=== PATIENT | male | born 1940 | race African-American/Black ===

== ENCOUNTER → 2018-09-30 | Day surgery (SDC) | payer MEDICARE ==
[2018-09-23 12:55] LABS: BASOPHILS % 0.3 % (0.0-1.0); EOSINOPHILS # (AUTO) 0.1 (0.0-0.4); HEMATOCRIT 41.8 % (38.2-49.6); HEMOGLOBIN 13.2 g/dL (14.0-18.0); LYMPHOCYTES # (AUTO) 1.2 (1.0-3.2); LYMPHOCYTES % 32.7 % (18.0-39.1); MEAN CORPUSCULAR HEMOGLOBIN 30.4 pg (28-32); MEAN CORPUSCULAR HGB CONC 31.6 g/dL (31-35); MEAN CORPUSCULAR VOLUME 96.3 fL (81-99); MONOCYTES # (AUTO) 0.5 (0.2-0.8); MONOCYTES % 14.3 % (4.4-11.3); NEUTROPHILS # (AUTO) 1.8 (2.1-6.9); NEUTROPHILS % 49.4 % (38.7-80.0); PLATELET COUNT 220 x10e3/uL (140-360); RED BLOOD COUNT 4.34 x10e6/uL (4.3-5.7); RED CELL DISTRIBUTION WIDTH 13.9 % (11.7-14.4)
[~2018-09-30] MED LIST: ATORVASTATIN CA20 MG PO; FENTANYL CITRATE/PF 100MCG/2 ML INJ ONE; HYDROCODON-ACE1 EA11 PO; HYOSCYAMINE SULFATE 0.5 MG/ML INJ ONE; MIDAZOLAM HCL 2 MG/2 ML VIAL ONE; PROPOFOL IV EMULSION 10 MG/ML 20 ML VIAL ONE; PROPOFOL IV EMULSION 10 MG/ML 50 ML VIAL ONE; ULTRAM50 MG PO
--- OUTSIDE RECORDS SUMMARY | 2018-09-30 08:10 | XMS REPORT ---
Author Author Giacomo Balderas [facility] eClinicalWorks Address Unknown Phone Unavailable Care Team Providers Care Freight Car Inspector Name Role Phone Giacomo Balderas Unavailable Allergies, Adverse Reactions, Alerts Substance Reaction Event Type N.K.D.A. Info Not Available Non Drug Allergy Encounters Encounter Location Date [facility] Migel Kim MD February 09, 2014 Problems Problem Type Condition ICD-9 Code Onset Dates Condition Status Assessment Gout, unspecified 274.9 Active Assessment Lumbar Radiculopathy 724.4 Active Problem Rheumatoid arthritis 714.0 Active Problem Lumbar Radiculopathy 724.4 Active Problem Gout, unspecified 274.9 Active Assessment Rheumatoid arthritis 714.0 Active Assessment Polyarthritis, multiple sites 716.59 Active Problem Long-term (current) use of other medications - High Risk V58.69 Active Problem Polyarthritis, multiple sites 716.59 Active Medications Medication Code System Code Instructions Start Date End Date Status Dosage Plaquenil MEDISPAN [address]-71 200 MG Orally Twice a day February 09, 2014 May 10, 2014 Active 1 tablet with food or milk Losartan Potassium MEDISPAN [address]-47 25 MG Orally Once a day Active 1 tablet Gabapentin MEDISPAN [address]-84 100 MG Orally Three times a day February 09, 2014 Active as directed Vimovo MEDISPAN [address]-48 500-20 MG Orally Twice a day Active 1 tablet before meals Atorvastatin Calcium MEDISPAN [address]-55 40 MG Orally Once a day Active 1 tablet Social History Social History Element Qualifiers Date Reported Tobacco Use: . Are you a:: former smoker February 09, 2014 Caffeine: no. February 09, 2014 Exercise: yes. Walking February 09, 2014 Alcohol: socially. beer February 09, 2014 Vital Signs Date/Time: February 09, 2014 Weight 189 lbs Height 74 in Temperature 97.3 F Cardiac Monitoring Heart Rate 72 /min Blood Pressure Diastolic 82 mm Hg Blood Pressure Systolic 142 mm Hg Immunizations Vaccine Administration Date Depomedrol February 09, 2014 Summary Purpose eClinicalWorks Submission
--- OUTSIDE RECORDS SUMMARY | 2018-09-30 08:10 | XMS REPORT | Continuity of Care Document ---
Author Author [facility] Interface Address Unknown Phone Unavailable Problems Problem Status Onset Date Classification Date Reported Comments Source Rheumatoid arthritis Active Problem 01/17/2016 Zay Meredither Lumbar Radiculopathy Active Problem 01/17/2016 Zay Kim Gout, unspecified Active Problem 01/17/2016 Zay Kim Long-term use of other medications - High Risk Active Problem 01/17/2016 Zay Kim Polyarthritis, multiple sites Active Problem 01/17/2016 Zay Kim Pain in joint, shoulder region Active Diagnosis 06/02/2014 Zay Meredither Pain in joint, wrist Active Diagnosis 04/07/2014 Zay Kim Osteoarthrosis generalized, unspecified site Active Problem 01/17/2016 Zay Meredither Unspecified drug dependence Active Diagnosis 04/07/2015 Zay Kim HTN, Unspecified Active Problem 02/22/2017 Enayet Rahim Hyperlipidemia, unspecified Active Problem 02/22/2017 Enayet Rahim Essential hypertension Active Problem 02/22/2017 Enayet Rahim Acute pain of right knee Active Diagnosis 02/22/2017 Enayet Rahim Rheumatoid arthritis involving multiple sites with positive rheumatoid factor Active Diagnosis 01/16/2017 Enayet Rahim Encounter to establish care Active Diagnosis 01/16/2017 Enayet Rahim Pure hypercholesterolemia Active Diagnosis 01/16/2017 Enayet Rahim Medications Medication Details Route Status Patient Instructions Ordering Provider Order Date Source Meloxicam 1 tablet Orally Active 15 MG Orally Once a day [facility] 02/20/2017 Enayet Rahim Medrol as directed Orally Active 4 MG Orally as directed [facility] 01/14/2017 Enayet Rahim Tramadol HCl 1 tablet as needed Orally Active 50 MG Orally bid [place] 11/01/2014 Zay Kim Vimovo 1 tablet before meals Orally Active 375-20 MG Orally Twice a day [place] 10/24/2014 Zay Kim Hydrocodone-Acetaminophen 1 tablet as needed Orally Active 5- 325 MG Orally every 6 hrs [place] 06/04/2014 Zay Kim Plaquenil 1 tablet with food or milk Orally Active 200 MG Orally Twice a day [place] 02/09/2014 Zay Kim Gabapentin as directed Orally Active 100 MG Orally Three times a day [place] 02/09/2014 Zay Kim Losartan Potassium 1 tablet Orally Active 25 MG Orally Once a day [place] Zay Kim Vimovo 1 tablet before meals Orally Active 500-20 MG Orally Twice a day [place] Zay Kim Atorvastatin Calcium 1 tablet Orally Active 40 MG Orally Once a day [facility] Zay Kim Gabapentin as directed Orally Active 100 MG Orally Three times a day [place] Zay Kim Tramadol HCl TAKE 1 TABLET BY MOUTH TWICE DAILY NEEDED NA Active 50 [place] Zay Kim Gabapentin TAKE ONE CAPSULE BY MOUTH THREE TIMES A DAY DIRECTED NA Active 100 [place] Zay Kim Atorvastatin Calcium 1 tablet Orally Active 20 MG Orally Once a day [facility] Saad Leon Tramadol HCl 1 tablet as needed Orally Active 50 MG Orally twice a day [facility] Saad [place] Losartan Potassium 1 tablet Orally Active 50 MG Orally Once a day [facility] Saad Hardy Celecoxib 1 capsule with food Orally Active 100 MG Orally Twice a day [facility] Leflunomide 1 tablet Orally Active 10 MG Orally Once a day [facility] Saad Hardy Allergies, Adverse Reactions, Alerts Substance Category Reaction Severity Reaction type Status Date Reported Comments Source Hydroxychloroquine Adverse Reaction blurry vision Adverse Reaction Active 03/21/2015 Zay Pandey Adverse Reaction Info Not Available Adverse Reaction Active 02/20/2017 Enlauraet him Immunizations Immunization Date Given Site Status Last Updated Comments Source Depomedrol 02/09/2014 completed Zay Kim Results Order Name Results Value Reference Range Date Interpretation Comments Source Vital Signs Vital Sign Value Date Comments Source Weight 187 02/20/2017 Enayet Rahim Height 74 02/20/2017 Enayet Rahim Temperature Oral (F) 97.3 F 02/20/2017 Enayet Rahim Diastolic (mm Hg) 105 02/20/2017 Enayet Rahim Systolic (mm Hg) 173 02/20/2017 Enayet Rahim Weight 188 01/14/2017 Enayet Rahim Height 74 01/14/2017 Enayet Rahim Temperature Oral (F) 97.2 F 01/14/2017 Enayet Rahim Diastolic (mm Hg) 100 01/14/2017 Enayet Rahim Systolic (mm Hg) 162 01/14/2017 Enayet Rahim Weight 187 03/21/2015 Zay Kim Height 74 03/21/2015 Zay Kim Temperature Oral (F) 97.4 F 03/21/2015 Zay Kim Heart Rate 78 03/21/2015 Zay Kim Diastolic (mm Hg) 90 03/21/2015 Zay Kim Systolic (mm Hg) 140 03/21/2015 Zay Kim Weight 181 11/01/2014 Zay Kim Height 74 11/01/2014 Zay Kim Temperature Oral (F) 97.8 F 11/01/2014 Zay Kim Heart Rate 80 11/01/2014 Zay Kim Diastolic (mm Hg) 82 11/01/2014 Zay Kim Systolic (mm Hg) 124 11/01/2014 Zay Kim Weight 189 02/09/2014 Zay Kim Height 74 02/09/2014 Zay Kim Temperature Oral (F) 97.3 F 02/09/2014 Zay Kim Heart Rate 72 02/09/2014 Zay Kim Diastolic (mm Hg) 82 02/09/2014 Zay Kim Systolic (mm Hg) 142 02/09/2014 Zay Kim Encounters Location Location Details Encounter Type Encounter Number Reason For Visit Attending Provider ADM Date DC Date Status Source Migel Kim MD [facility] [id number] 02/09/2014 02/09/2014 Zay Kim MD [facility] [id number] 02/09/2014 02/09/2014 Zay Kim MD [facility] [id number] 02/09/2014 02/09/2014 Zay Kim MD [facility] [id number] 02/09/2014 02/09/2014 Zay Kim MD [facility] [id number] 02/09/2014 02/09/2014 Zay Kim MD [facility] [id number] 02/09/2014 02/09/2014 Zay Kim MD [facility] [id number] 02/09/2014 02/09/2014 Zay Kim MD [facility] [id number] 02/09/2014 02/09/2014 Zay Kim MD [facility] [id number] 02/09/2014 02/09/2014 Zay Kim MD [facility] [id number] 02/09/2014 02/09/2014 Zay Kim MD [facility] [id number] 02/09/2014 02/09/2014 Zay Kim MD [facility] [id number] 02/09/2014 02/09/2014 Zay Kim MD [facility] [id number] 02/09/2014 02/09/2014 Zay Kim MD [facility] [id number] 02/09/2014 02/09/2014 Zay Kim MD [facility] [id number] 02/09/2014 02/09/2014 Zay Kim MD [facility] [id number] 02/09/2014 02/09/2014 Zay Kim MD MRI [id number] 03/15/2014 03/15/2014 Zay Kim MD MRI [id number] 03/15/2014 03/15/2014 Zay Kim MD MRI [id number] 03/15/2014 03/15/2014 Zay Kim MD MRI [id number] 03/15/2014 03/15/2014 Zay Kim MD MRI [id number] 03/15/2014 03/15/2014 Zay Kim MD MRI [id number] 03/15/2014 03/15/2014 Zay Kim MD MRI [id number] 03/15/2014 03/15/2014 Zay Kim MD MRI [id number] 03/15/2014 03/15/2014 Zay Kim MD MRI [id number] 03/15/2014 03/15/2014 Zay Kim MD MRI [id number] 03/15/2014 03/15/2014 Zay Kim MD [facility] [id number] 03/15/2014 03/15/2014 Zay Kim MD [facility] [id number] 03/15/2014 03/15/2014 Zay Kim MD MRI [id number] 03/15/2014 03/15/2014 Zay Kim MD MRI [id number] 03/15/2014 03/15/2014 Zay Kim MD [facility] [id number] 03/15/2014 03/15/2014 Zay Kim MD 6wk f/u [id number] 04/19/2014 04/19/2014 Zay Kim MD 6wk f/u [id number] 04/19/2014 04/19/2014 Zay Kim MD 6wk f/u [id number] 04/19/2014 04/19/2014 Zay iKm MD 6wk f/u [id number] 04/19/2014 04/19/2014 Zay Kim MD 6wk f/u [id number] 04/19/2014 04/19/2014 Zay Kim MD 6wk f/u [id number] 04/19/2014 04/19/2014 Zay Kim MD 6wk f/u [id number] 04/19/2014 04/19/2014 Zay Kim MD MRI Order [id number] 04/22/2014 04/22/2014 Zay Kim MD MRI Order [id number] 04/22/2014 04/22/2014 Zay Kim MD MRI Order [id number] 04/22/2014 04/22/2014 Zay Kim MD MRI Order [id number] 04/22/2014 04/22/2014 Zay Kim MD MRI Order [id number] 04/22/2014 04/22/2014 Zay Kim MD MRI Order [id number] 04/22/2014 04/22/2014 Zay Kim MD MRI Order [id number] 04/22/2014 04/22/2014 Zay Kim MD MRI Order [id number] 04/22/2014 04/22/2014 Zay Kim MD MRI Order [id number] 04/22/2014 04/22/2014 Zay Kim MD MRI Order [id number] 04/22/2014 04/22/2014 Zay Kim MD MRI Order [id number] 04/22/2014 04/22/2014 Zay Kim MD MRI Order [id number] 04/22/2014 04/22/2014 Zay Kim MD MRI Order [id number] 04/22/2014 04/22/2014 Zay Kim MD MRI Order [id number] 04/22/2014 04/22/2014 Zay Kim MD lab order [id number] 04/22/2014 04/22/2014 Zay Kim MD lab order [id number] 04/22/2014 04/22/2014 Zay Kim MD lab order [id number] 04/22/2014 04/22/2014 Zay Kim MD lab order [id number] 04/22/2014 04/22/2014 Zay Kim MD lab order [id number] 04/22/2014 04/22/2014 Zay Kim MD lab order [id number] 04/22/2014 04/22/2014 Zay Kim MD lab order [id number] 04/22/2014 04/22/2014 Zay Kim MD lab order [id number] 04/22/2014 04/22/2014 Zay Kim MD lab order [id number] 04/22/2014 04/22/2014 Zay Kim MD lab order [id number] 04/22/2014 04/22/2014 Zay Kim MD Tylenol [id number] 04/22/2014 04/22/2014 Zay Kim MD Tylenol [id number] 04/22/2014 04/22/2014 Zay Kim MD Tylenol [id number] 04/22/2014 04/22/2014 Zay Kim MD Tylenol [id number] 04/22/2014 04/22/2014 Zay Kim MD Tylenol [id number] 04/22/2014 04/22/2014 Zay Kim MD Tylenol [id number] 04/22/2014 04/22/2014 Zay Kim MD Tylenol [id number] 04/22/2014 04/22/2014 Zay Kim MD Tylenol [id number] 04/22/2014 04/22/2014 Zay Kim MD Tylenol [id number] 04/22/2014 04/22/2014 Zay Kim MD Tylenol [id number] 04/22/2014 04/22/2014 Zay Kim MD lab order [id number] 04/22/2014 04/22/2014 Zay Kim MD lab order [id number] 04/22/2014 04/22/2014 Zay Kim MD lab order [id number] 04/22/2014 04/22/2014 Zay Kim MD lab order [id number] 04/22/2014 04/22/2014 Zay Kim MD Tylenol [id number] 04/22/2014 04/22/2014 Zay Kim MD Tylenol [id number] 04/22/2014 04/22/2014 Zay Kim MD Tylenol [id number] 04/22/2014 04/22/2014 Zay Kim MD Tylenol [id number] 04/22/2014 04/22/2014 Zay Kim MD RX Refill Request-- Hydrocodone [id number] 05/16/2014 05/16/2014 Zay Kim MD RX Refill Request-- Hydrocodone [id number] 05/16/2014 05/16/2014 Zay Kim MD RX Refill Request-- Hydrocodone [id number] 05/16/2014 05/16/2014 Zay Kim MD RX Refill Request-- Hydrocodone [id number] 05/16/2014 05/16/2014 Zay Kim MD RX Refill Request-- Hydrocodone [id number] 05/16/2014 05/16/2014 Zay Kim MD RX Refill Request-- Hydrocodone [id number] 05/16/2014 05/16/2014 Zay Kim MD RX Refill Request-- Hydrocodone [id number] 05/16/2014 05/16/2014 Zay Kim MD RX Refill Request-- Hydrocodone [id number] 05/16/2014 05/16/2014 Zay Kim MD RX Refill Request-- Hydrocodone [id number] 05/16/2014 05/16/2014 Zay Kim MD RX Refill Request-- Hydrocodone [id number] 05/16/2014 05/16/2014 Zay Kim MD RX Refill Request-- Hydrocodone [id number] 05/16/2014 05/16/2014 Zay Kim MD RX Refill Request-- Hydrocodone [id number] 05/16/2014 05/16/2014 Zay Kim MD RX Refill Request-- Hydrocodone [id number] 05/16/2014 05/16/2014 Zay Kim MD RX Refill Request-- Hydrocodone [id number] 05/16/2014 05/16/2014 Zay Kim MD RX Request-- Gabapentin [id number] 06/03/2014 06/03/2014 Zay Kim MD RX Request-- Gabapentin [id number] 06/03/2014 06/03/2014 Zay Kim MD RX Request-- Gabapentin [id number] 06/03/2014 06/03/2014 Zay Kim MD RX Request-- Gabapentin [id number] 06/03/2014 06/03/2014 Zay Kim MD RX Request-- Gabapentin [id number] 06/03/2014 06/03/2014 Zay Kim MD RX Request-- Gabapentin [id number] 06/03/2014 06/03/2014 Zay Kim MD RX Request-- Gabapentin [id number] 06/03/2014 06/03/2014 Zay Kim MD RX Request-- Gabapentin [id number] 06/03/2014 06/03/2014 Zay Kim MD RX Request-- Gabapentin [id number] 06/03/2014 06/03/2014 Zay Kim MD RX Request-- Gabapentin [id number] 06/03/2014 06/03/2014 Zay Kim MD F/U [id number] 07/26/2014 07/26/2014 Zay Kim MD F/U [id number] 07/26/2014 07/26/2014 Zay Kim MD F/U [id number] 07/26/2014 07/26/2014 Zay Kim MD F/U [id number] 07/26/2014 07/26/2014 Zay Kim MD F/U [id number] 07/26/2014 07/26/2014 Zay Kim MD F/U [id number] 07/26/2014 07/26/2014 Zay Kim MD F/U [id number] 07/26/2014 07/26/2014 Zay Kim MD Refill- Vimovo [id number] 08/01/2014 08/01/2014 Zay Kim MD Refill- Vimovo [id number] 08/01/2014 08/01/2014 Zay Kim MD Refill- Vimovo [id number] 08/01/2014 08/01/2014 Zay Kim MD Refill- Vimovo [id number] 08/01/2014 08/01/2014 Zay Kim MD Refill- Vimovo [id number] 08/01/2014 08/01/2014 aZy Kim MD Refill- Vimovo [id number] 08/01/2014 08/01/2014 Zay Kim MD Refill- Vimovo [id number] 08/01/2014 08/01/2014 Zay Kim MD Refill- Vimovo [id number] 08/01/2014 08/01/2014 Zay Kim MD Refill- Vimovo [id number] 08/01/2014 08/01/2014 Zay Kim MD RX CLARIFICATION [id number] 08/04/2014 08/04/2014 Zay Kim MD RX CLARIFICATION [id number] 08/04/2014 08/04/2014 Zay Kim MD RX CLARIFICATION [id number] 08/04/2014 08/04/2014 Zay Kim MD RX CLARIFICATION [id number] 08/04/2014 08/04/2014 Zay Kim MD RX CLARIFICATION [id number] 08/04/2014 08/04/2014 Zay Kim MD RX CLARIFICATION [id number] 08/04/2014 08/04/2014 Zay Kim MD RX CLARIFICATION [id number] 08/04/2014 08/04/2014 Zay Kim MD RX CLARIFICATION [id number] 08/04/2014 08/04/2014 Zay Kim MD RX CLARIFICATION [id number] 08/04/2014 08/04/2014 Zay Kim MD MRI [id number] 10/06/2014 10/06/2014 Zay Kim MD MRI [id number] 10/06/2014 10/06/2014 Zay Kim MD MRI [id number] 10/06/2014 10/06/2014 Zay Kim MD MRI [id number] 10/06/2014 10/06/2014 Zay Kim MD MRI [id number] 10/06/2014 10/06/2014 Zay Kim MD MRI [id number] 10/06/2014 10/06/2014 Zay Kim MD MRI [id number] 10/06/2014 10/06/2014 Zay Kim MD Add on [id number] 10/31/2014 10/31/2014 Zay Kim MD Add on [id number] 10/31/2014 10/31/2014 Zay Kim MD Add on [id number] 10/31/2014 10/31/2014 Zay Kim MD Add on [id number] 10/31/2014 10/31/2014 Zay Kim MD Add on [id number] 10/31/2014 10/31/2014 Zay Kim MD Add on [id number] 10/31/2014 10/31/2014 Zay Kim MD Add on [id number] 10/31/2014 10/31/2014 Zay Kim MD f/u [id number] 11/01/2014 11/01/2014 Zay Kim MD f/u [id number] 11/01/2014 11/01/2014 Zay Kim MD f/u [id number] 11/01/2014 11/01/2014 Zay Kim MD f/u [id number] 11/01/2014 11/01/2014 Zay Kim MD f/u [id number] 11/01/2014 11/01/2014 Zay Kim MD f/u [id number] 11/01/2014 11/01/2014 Zay Kim MD f/u [id number] 11/01/2014 11/01/2014 Zay Kim MD Refill- Tramadol [id number] 01/23/2015 01/23/2015 Zay Kim MD Refill- Tramadol [id number] 01/23/2015 01/23/2015 Zay Kim MD Refill- Tramadol [id number] 01/23/2015 01/23/2015 Zay Kim MD Refill- Tramadol [id number] 01/23/2015 01/23/2015 Zay Kim MD Refill- Tramadol [id number] 01/23/2015 01/23/2015 Zay Kim MD Refill- Tramadol [id number] 01/23/2015 01/23/2015 Zay Kim MD DEXA [id number] 03/15/2015 03/15/2015 Zay Kim MD MRI [id number] 03/15/2015 03/15/2015 Zay Kim MD DEXA [id number] 03/15/2015 03/15/2015 Zay Kim MD MRI [id number] 03/15/2015 03/15/2015 Zay Kim MD DEXA [id number] 03/15/2015 03/15/2015 Zay Kim MD MRI [id number] 03/15/2015 03/15/2015 Zay Kim MD DEXA [id number] 03/15/2015 03/15/2015 Zay Kim MD MRI [id number] 03/15/2015 03/15/2015 Zay Kim MD DEXA [id number] 03/15/2015 03/15/2015 Zay Kim MD MRI [id number] 03/15/2015 03/15/2015 Zay Kim MD DEXA [id number] 03/15/2015 03/15/2015 Zay Kim MD MRI [id number] 03/15/2015 03/15/2015 Zay Kim MD 4m f/u [id number] 03/21/2015 03/21/2015 Zay Kim MD 4m f/u [id number] 03/21/2015 03/21/2015 Zay Kim MD 4m f/u [id number] 03/21/2015 03/21/2015 Zay Kim MD 4m f/u [id number] 03/21/2015 03/21/2015 Zay Kim MD MRI [id number] 04/13/2015 04/13/2015 Zay Kim MD [facility] [id number] 04/13/2015 04/13/2015 Zay Kim MD [facility] [id number] 04/13/2015 04/13/2015 Zay Kim MD Refill- Tramadol [id number] 07/10/2015 07/10/2015 Zay Kim MD Refill- Tramadol [id number] 07/10/2015 07/10/2015 Zay Kim MD Refill- Tramadol [id number] 07/10/2015 07/10/2015 Zay Kim MD No Show [id number] 09/21/2015 09/21/2015 Zay Kim MD No Show [id number] 09/21/2015 09/21/2015 Zay Kim MD n/s appt. [id number] 01/09/2016 01/09/2016 Zay Kim Procedures Procedure Code Date Perfomer Comments Source
--- OUTSIDE RECORDS SUMMARY | 2018-09-30 08:11 | XMS REPORT ---
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 Name Role Phone Migel Kim Unavailable Encounters Encounter Location Date MRI Order Migel Kim MD Apr 22, 2014 Tylenol Migel Kim MD Apr 22, 2014 RX Refill Request-- Hydrocodone Migel Kim MD May 16, 2014 KNEE PAIN Migel Kim MD February 09, 2014 MRI Migel Kim MD March 15, 2014 lab order Migel Kim MD Apr 22, 2014 Problems Problem Type Condition ICD-9 Code Onset Dates Condition Status Problem Rheumatoid arthritis 714.0 Active Problem Lumbar Radiculopathy 724.4 Active Problem Gout, unspecified 274.9 Active Assessment Rheumatoid arthritis 714.0 Active Problem Long-term (current) use of other medications - High Risk V58.69 Active Problem Polyarthritis, multiple sites 716.59 Active Social History Social History Element Qualifiers Date Reported Tobacco Use: . Are you a:: former smoker , How long has it been since you last smoked?: > 10 years Apr 19, 2014 Caffeine: no. Apr 19, 2014 Exercise: yes. Walking Apr 19, 2014 Alcohol: socially. beer Apr 19, 2014 Summary Purpose eClinicalWorks Submission
--- OUTSIDE RECORDS SUMMARY | 2018-09-30 08:11 | XMS REPORT ---
Author Author Boby Hoyos Organization eClinicalWorks Address Unknown Phone Unavailable Care Team Providers Care Wheel Blocker Name Role Phone Boby Hoyos CP Unavailable Allergies, Adverse Reactions, Alerts Substance Reaction Event Type N.K.D.A. Info Not Available Non Drug Allergy Problems Problem Type Condition Code Onset Dates Condition Status Problem HTN, Unspecified 401.9 Active Problem Hyperlipidemia, unspecified 272.4 Active Problem Essential hypertension I10 Active Assessment Acute pain of right knee M25.561 Active Medications Medication Code System Code Instructions Start Date End Date Status Dosage Medrol [facility] [address]-79 4 MG Orally as directed January 14, 2017 Active as directed Atorvastatin Calcium [facility] [address]-33 20 MG Orally Once a day Active 1 tablet Tramadol HCl [facility] [address]-02 50 MG Orally twice a day Active 1 tablet as needed Losartan Potassium [facility] [address]-75 50 MG Orally Once a day Active 1 tablet Celecoxib [facility] [address]-94 100 MG Orally Twice a day Active 1 capsule with food Leflunomide [facility] [address]-19 10 MG Orally Once a day Active 1 tablet Meloxicam [facility] [address]-42 15 MG Orally Once a day February 20, 2017 Apr 21, 2017 Active 1 tablet Vital Signs Date/Time: February 20, 2017 BMI 24.01 Index Weight 187 lbs Height 74 in Temperature 97.3 F Blood Pressure Diastolic 105 mm Hg Blood Pressure Systolic 173 mm Hg Results No Known Results Summary Purpose eClinicalWorks Submission
--- OUTSIDE RECORDS SUMMARY | 2018-09-30 08:11 | XMS REPORT ---
Author Author Migel Kim [facility] eClinicalWorks Address Unknown Phone Unavailable Care Team Providers Care Attendant [facility] Name Role Phone Migel Kim Unavailable Encounters Encounter Location Date MRI Order Migel Kim MD Apr 22, 2014 Tylenol Migel Kim MD Apr 22, 2014 RX Refill Request-- Hydrocodone Migel Kim MD May 16, 2014 RX Request-- Gabapentin Migel Kim MD Jun 03, 2014 KNEE PAIN Migel Kim MD February 09, 2014 MRI Migel Kim MD March 15, 2014 lab order Migel Kim MD Apr 22, 2014 Problems Problem Type Condition ICD-9 Code Onset Dates Condition Status Problem Rheumatoid arthritis 714.0 Active Problem Lumbar Radiculopathy 724.4 Active Problem Gout, unspecified 274.9 Active Problem Long-term (current) use of other medications - High Risk V58.69 Active Problem Polyarthritis, multiple sites 716.59 Active Medications Medication Code System Code Instructions Start Date End Date Status Dosage Gabapentin [facility] [address]-92 100 MG Orally Three times a day Active as directed Social History Social History Element Qualifiers Date Reported Tobacco Use: . Are you a:: former smoker , How long has it been since you last smoked?: > 10 years Apr 19, 2014 Caffeine: no. Apr 19, 2014 Exercise: yes. Walking Apr 19, 2014 Alcohol: socially. beer Apr 19, 2014 Summary Purpose eClinicalWorks Submission
--- OUTSIDE RECORDS SUMMARY | 2018-09-30 08:11 | XMS REPORT ---
Author Author [facility] Address Unknown Phone Unavailable Care Team Providers Care Archery Instructor Name Role Phone Unavailable Unavailable Problems This patient has no known problems. Allergies, Adverse Reactions, Alerts This patient has no known allergies or adverse reactions. Medications This patient has no known medications. Encounters Start Date/Time End Date/Time Encounter Type Admission Type Attending Clinicians Care Facility Care Department Encounter ID 2018-04-06 00:00:00 2018-04-07 00:00:[address] [facility] [id number]
--- OUTSIDE RECORDS SUMMARY | 2018-09-30 08:11 | XMS REPORT ---
Author Author Migel Kim [facility] eClinicalWorks Address Unknown Phone Unavailable Care Team Providers Care Field Naturalist Name Role Phone Migel Kim Unavailable Encounters [...]
--- OUTSIDE RECORDS SUMMARY | 2018-09-30 08:11 | XMS REPORT ---
Author Author Migel Kim [employer] Address Unknown Phone Unavailable Care Team Providers Care Hogshead Hooper Name Role Phone Migel Kim CP Unavailable Encounters Encounter Location Date MRI Order Migel Kim MD Apr 22, 2014 Tylenol Migel Kim MD Apr 22, 2014 RX Refill Request-- Hydrocodone Migel Kim MD May 16, 2014 RX Request-- Gabapentin Migel Kim MD Jun 03, 2014 KNEE PAIN Migel Kim MD February 09, 2014 MRI Migel Kim MD March 15, 2014 lab order Migel Kim MD Apr 22, 2014 6wk f/u Migel Kim MD Apr 19, 2014 Refill- Vimovo Migel Kim MD Aug 01, 2014 RX CLARIFICATION Migel Kim MD Aug 04, 2014 DEXA Migel Kim MD March 15, 2015 Refill- Tramadol Migel Kmi MD January 23, 2015 MRI Migel Kim MD March 15, 2015 Add on Migel Kim MD October 31, 2014 f/u Migel Kim MD November 01, 2014 F/U Migel Kim MD Jul 26, 2014 MRI Migel Kim MD Oct 06, 2014 Problems Problem Type Condition ICD-9 Code [...] since you last smoked?: > 10 years November 01, 2014 Caffeine: no. November 01, 2014 Exercise: yes. Walking November 01, 2014 Alcohol: socially. beer November 01, 2014 Summary Purpose eClinicalWorks Submission
--- OUTSIDE RECORDS SUMMARY | 2018-09-30 08:11 | XMS REPORT ---
Author Author Migel Kim [employer] Address Unknown Phone Unavailable Care Team Providers Care Stock Holder Name Role Phone Migel Kim CP Unavailable [...] order Migel Kim MD Apr 22, 2014 Refill- Vimovo Migel Kim MD Aug 01, 2014 RX CLARIFICATION Migel Kim MD Aug 04, 2014 Problems Problem Type Condition ICD-9 Code Onset Dates Condition Status Problem Rheumatoid arthritis 714.0 Active Problem Lumbar Radiculopathy 724.4 Active Problem Gout, unspecified 274.9 Active Assessment Rheumatoid arthritis 714.0 Active Problem Long-term (current) use of other medications - High Risk V58.69 Active Problem Polyarthritis, multiple sites 716.59 Active Medications Medication Code System Code Instructions Start Date End Date Status Dosage Vimovo MEDISP[facility] [address]-69 375-20 MG Orally Twice a day October 24, 2014 Active 1 tablet before meals Social History Social History Element Qualifiers Date Reported Tobacco Use: . Are you a:: former smoker , How long has it been since you last smoked?: > 10 years Jul 26, 2014 Caffeine: no. Jul 26, 2014 Exercise: yes. Walking Jul 26, 2014 Alcohol: socially. beer Jul 26, 2014 Summary Purpose eClinicalWorks Submission
--- OUTSIDE RECORDS SUMMARY | 2018-09-30 08:11 | XMS REPORT ---
Author Author Radha Puckett [facility] eClinicalWorks Address Unknown Phone Unavailable Care Team Providers Care Nursing Staffing Coordinator Name Role Phone Radha Puckett Unavailable Allergies, Adverse Reactions, Alerts Substance Reaction Event Type Hydroxychloroquine blurry vision Non Drug Allergy Encounters Encounter Location Date MRI Order Migel [...] CLARIFICATION Migel Kim MD Aug 04, 2014 Add on Migel Kim MD October 31, 2014 f/u Migel Kim MD November 01, 2014 F/U Migel Kim MD Jul 26, 2014 MRI Migel Kim MD Oct 06, 2014 Problems Problem Type Condition ICD-9 Code Onset Dates Condition Status Assessment Long-term (current) use of other medications - High Risk V58.69 Active Problem Rheumatoid arthritis 714.0 Active Problem Lumbar Radiculopathy 724.4 Active Problem Gout, unspecified 274.9 Active Assessment Rheumatoid arthritis 714.0 Active Assessment Gout, unspecified 274.9 Active Problem Long-term (current) use of other medications - High Risk V58.69 Active Problem Polyarthritis, multiple sites 716.59 Active Medications Medication Code System Code Instructions Start Date End Date Status Dosage Tramadol HCl [facility] [address]-06 50 MG Orally bid November 01, 2014 January 30, 2015 Active 1 tablet as needed Gabapentin [facility] 65900859154 100 Active TAKE ONE CAPSULE BY MOUTH THREE TIMES A DAY DIRECTED Atorvastatin Calcium [facility] [address]-94 40 MG Orally Once a day Active 1 tablet Social History Social History Element Qualifiers Date Reported Tobacco Use: . Are you a:: former smoker , How long has it been since you last smoked?: > 10 years November 01, 2014 Caffeine: no. November 01, 2014 Exercise: yes. Walking November 01, 2014 Alcohol: socially. beer November 01, 2014 Vital Signs Date/Time: November 01, 2014 Weight 181 lbs Height 74 in Temperature 97.8 F Cardiac Monitoring Heart Rate 80 /min Blood Pressure Diastolic 82 mm Hg Blood Pressure Systolic 124 mm Hg Results COMPREHENSIVE METABOLIC PANEL W/EGFR CALCIUM(-8.6-10.3 mg/dL) 9.5 CARBON DIOXIDE(-19-30 mmol/L) 23 ALT(-9-46 U/L) 42 CREATININE(-0.70-1.18 mg/dL) 1.02 AST(-10-35 U/L) 29 eGFR NON-AFR. KENYAN(-> OR=60 mL/min/1.73m2) 74 ALKALINE PHOSPHATASE(-40-115 U/L) 59 eGFR (-> OR=60 mL/min/1.73m2) 85 BILIRUBIN, TOTAL(-0.2-1.2 mg/dL) 0.5 BUN/CREATININE RATIO(-6-22 (calc)) NOT APPLICABLE ALBUMIN/GLOBULIN RATIO(-1.0-2.5 (calc)) 1.2 SODIUM(-135-146 mmol/L) 136 GLOBULIN(-1.9-3.7 g/dL (calc)) 3.6 POTASSIUM(-3.5-5.3 mmol/L) 3.9 GLUCOSE(-65-99 mg/dL) 178 CHLORIDE(-98-110 mmol/L) 100 ALBUMIN(-3.6-5.1 g/dL) 4.2 UREA NITROGEN (BUN)(-7-25 mg/dL) 17 PROTEIN, TOTAL(-6.1-8.1 g/dL) 7.8 URIC ACID URIC ACID(-4.0-8.0 mg/dL) 8.1 C-REACTIVE PROTEIN C-REACTIVE PROTEIN(-<0.80 mg/dL) 0.11 CBC (INCLUDES DIFF/PLT) MCHC(-32.0-36.0 g/dL) 32.9 MCH(-27.0-33.0 pg) 29.8 PLATELET COUNT(-140-400 Thousand/uL) 239 RDW(-11.0-15.0 %) 13.2 ABSOLUTE LYMPHOCYTES(-850-3900 cells/uL) 1377 ABSOLUTE MONOCYTES(-200-950 cells/uL) 246 ABSOLUTE NEUTROPHILS(-1585-4126 cells/uL) 2200 NEUTROPHILS(- %) 56.4 HEMATOCRIT(-38.5-50.0 %) 45.2 LYMPHOCYTES(- %) 35.3 MCV(-80.0-100.0 fL) 90.6 RED BLOOD CELL COUNT(-4.20-5.80 Million/uL) 4.99 ABSOLUTE EOSINOPHILS(-15-500 cells/uL) 66 ABSOLUTE BASOPHILS(-0-200 cells/uL) 12 HEMOGLOBIN(-13.2-17.1 g/dL) 14.9 BASOPHILS(- %) 0.3 WHITE BLOOD CELL COUNT(-3.8-10.8 Thousand/uL) 3.9 MONOCYTES(- %) 6.3 EOSINOPHILS(- %) 1.7 SED RATE BY MODIFIED WESTERGREN SED RATE BY MODIFIED WESTERGREN(-< OR=20 mm/h) 21 Summary Purpose eClinicalWorks Submission
--- OUTSIDE RECORDS SUMMARY | 2018-09-30 08:11 | XMS REPORT ---
Author Author Migel Kim [employer] Address Unknown Phone Unavailable Care Team Providers Care Pm Technician Name Role Phone Migel Kim CP Unavailable [...] f/u Migel Kim MD Apr 19, 2014 No Show Migel Kim MD Sep 21, 2015 Refill- Tramadol Migel Kim MD Jul 10, 2015 Refill- Vimovo Migel Kim MD Aug 01, 2014 RX CLARIFICATION Migel Kim MD Aug 04, 2014 DEXA Migel Kim MD March 15, 2015 4m f/u Migel Kim MD March 21, 2015 Refill- Tramadol Migel Kim MD January 23, 2015 MRI Migel Kim MD March 15, 2015 Add on Migel Kim MD October 31, 2014 f/u Migel Kim MD November 01, 2014 F/U Migel Kim MD Jul 26, 2014 MRI Migel Kim MD Oct 06, 2014 MRI Migel Kim MD Apr 12, 2015 Problems Problem Type Condition ICD-9 Code Onset Dates Condition Status Problem Gout, unspecified 274.9 Active Problem Rheumatoid arthritis 714.0 Active Problem Osteoarthrosis generalized, 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 March 21, 2015 Tobacco Use: . Are you a:: former smoker , How long has it been since you last smoked?: > 10 years March 21, 2015 Caffeine: no. March 21, 2015 Exercise: yes. Walking March 21, 2015 Alcohol: socially. beer March 21, 2015 Summary Purpose eClinicalWorks Submission
--- OUTSIDE RECORDS SUMMARY | 2018-09-30 08:11 | XMS REPORT ---
Author Author Migel Kim [employer] Address Unknown Phone Unavailable Care Team Providers Care Ladies Locker Room Attendant Name Role Phone Migel Kim CP Unavailable [...]
--- OUTSIDE RECORDS SUMMARY | 2018-09-30 08:11 | XMS REPORT ---
Author Author Migel Kim [employer] Address Unknown Phone Unavailable Care Team Providers Care Order Builder Name Role Phone Migel Kim CP Unavailable [...] MD March 15, 2015 Refill- Tramadol Migel Kim MD January [...]
--- OUTSIDE RECORDS SUMMARY | 2018-09-30 08:11 | XMS REPORT ---
Author Author Migel Kim [facility] eClinicalWorks Address Unknown Phone Unavailable Care Team Providers Care Music Promoter Name Role Phone Migel Kim Unavailable Encounters [...]
--- OUTSIDE RECORDS SUMMARY | 2018-09-30 08:11 | XMS REPORT ---
Author Author Migel Kim [employer] Address Unknown Phone Unavailable Care Team Providers Care Pharmacy Operations Manager Name Role Phone Migel Kim CP Unavailable [...] MRI Migel Kim MD March 15, 2015 n/s appt. Migel Kim MD January 09, 2016 Add on Migel Kim MD October 31, [...]
--- OUTSIDE RECORDS SUMMARY | 2018-09-30 08:11 | XMS REPORT ---
Author Author Boby Hoyos Organization e[employer]Works Address Unknown Phone Unavailable Care Team Providers Care Senior National Account Manager Name Role Phone Boby Hoyos CP Unavailable Allergies, Adverse Reactions, Alerts Substance Reaction Event Type N.K.D.A. 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 [address]-06 4 MG Orally as directed January 14, 2017 Active as directed Celecoxib [facility] [address]-32 100 MG Orally Twice a day Active 1 capsule with food Atorvastatin Calcium [facility] [address]-45 20 MG Orally Once a day Active 1 tablet Losartan Potassium [facility] [address]-99 50 MG Orally Once a day Active [address] [facility] [address]-78 10 MG Orally Once a day Active 1 tablet Tramadol HCl [facility] [address]-03 50 MG Orally twice a day Active 1 tablet as needed Vital Signs Date/Time: January 14, 2017 BMI 24.14 Index Weight 188 lbs Height 74 in Temperature 97.2 F Blood Pressure Diastolic 100 mm Hg Blood Pressure Systolic 162 mm Hg Results No Known Results Summary Purpose eClinicalWorks Submission
--- OUTSIDE RECORDS SUMMARY | 2018-09-30 08:11 | XMS REPORT ---
Author Author Migel Kim [facility] eClinicalWorks Address Unknown Phone Unavailable Care Team Providers Care Chemical Engineer Name Role Phone Migel Kim Unavailable Encounters [...] Active Problem Gout, unspecified 274.9 Active Assessment Pain in joint, shoulder region 719.41 Active Problem Long-term (current) use of other medications - High Risk V58.69 Active Problem Polyarthritis, multiple sites 716.59 Active Medications Medication Code System Code Instructions Start Date End Date Status Dosage Hydrocodone-Acetaminophen [facility] [address]-41 5-325 MG Orally every 6 hrs Jun 04, 2014 Active 1 tablet as needed Social History Social History Element Qualifiers Date Reported Tobacco Use: . Are you a:: former smoker , How long has it been since you last smoked?: > 10 years Apr 19, 2014 Caffeine: no. Apr 19, 2014 Exercise: yes. Walking Apr 19, 2014 Alcohol: socially. beer Apr 19, 2014 Summary Purpose eClinicalWorks Submission
--- OUTSIDE RECORDS SUMMARY | 2018-09-30 08:11 | XMS REPORT ---
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 March 21, 2015 Tobacco Use: . Are you a:: former smoker , How long has it been since you last smoked?: > 10 years March 21, 2015 Caffeine: no. March 21, 2015 Exercise: yes. Walking March 21, 2015 Alcohol: socially. beer March 21, 2015 Vital Signs Date/Time: March 21, 2015 Weight 187 lbs Height 74 in Temperature 97.4 F Cardiac Monitoring Heart Rate 78 /min Blood Pressure Diastolic 90 mm Hg Blood Pressure Systolic 140 mm Hg Summary Purpose eClinicalWorks Submission
--- OUTSIDE RECORDS SUMMARY | 2018-09-30 08:11 | XMS REPORT ---
Author Author Natasha Wright [facility] eClinicalWorks Address Unknown Phone Unavailable Care Team Providers Care Chlorine Cell Tender Name Role Phone Natasha Wright Unavailable Encounters Encounter Location Date MRI Order [...] Migel Kim MD Apr 19, 2014 Refill- Tramadol Migel Kim MD Jul 10, [...] Date End Date Status Dosage Tramadol HCl [facility] [address]-44 50 MG Orally BID Active TAKE 1 TABLET BY MOUTH TWICE DAILY NEEDED Social History Social History Element Qualifiers Date [...]
--- OUTSIDE RECORDS SUMMARY | 2018-09-30 08:11 | XMS REPORT ---
Author Migel Carrasco [facility] eClinicalWorks Address Unknown Phone Unavailable Care Team Providers Care Director Export Name Role Phone Migel Kim Unavailable Encounters Encounter Location Date KNEE PAIN Migel Kim MD February 09, 2014 MRI Migel Kim MD March 15, 2014 Problems Problem Type Condition ICD-9 Code Onset Dates Condition Status Problem Rheumatoid arthritis 714.0 Active Problem Lumbar Radiculopathy 724.4 Active Problem Gout, unspecified 274.9 Active Assessment Pain in joint, wrist 719.43 Active Problem Long-term (current) use of other medications - High Risk V58.69 Active Problem Polyarthritis, multiple sites 716.59 Active Social History Social History Element Qualifiers Date Reported Tobacco Use: . Are you a:: former smoker February 09, 2014 Caffeine: no. February 09, 2014 Exercise: yes. Walking February 09, 2014 Alcohol: socially. beer February 09, 2014 Summary Purpose eClinicalWorks Submission
--- OUTSIDE RECORDS SUMMARY | 2018-09-30 08:11 | XMS REPORT | Summary of Care ---
Author Author Chris Weldon, Karol Campo Unknown Address Unknown Phone Unavailable Care Team Providers Care Sports Medicine Trainer Name Role Phone AMBER TA M.D. 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 Medications Name Dates Details TraMADol HCl TABS Active Allergies and Adverse Reactions Name Dates Details No Known Drug Allergies (Allergy) Status: Active Past Medical History Name Dates Details History of Hernia (553.9, K46.9) Status: Resolved Procedures Procedure Dates Details MR Shoulder w contrast 20024 Date: 08-Sep-2018 Immunization Name Dates Details Immunizations not documented Family History Name Dates Details Family history of hypertension (V17.49, Z82.49) Comments: Family History Status: Active Family history of diabetes mellitus (V18.0, Z83.3) Comments: Family History Status: Active Family history of Heart trouble (429.9, I51.9) Comments: Family History Status: Active Name Dates Details Family history of hypertension (V17.49, Z82.49) Status: Active Family history of diabetes mellitus (V18.0, Z83.3) Status: Active Family history of Heart trouble (429.9, I51.9) Status: Active Social History Name Dates Details - Status: Name Dates Details Never smoker Vital Signs Date Test Result Details No Known Vitals to report Results Date Description Value Details Results not documented Plan of Care Name Dates Details Planned Observations Planned Goals not documented Interventions Provided Labs/Procedures/Imaging* MR Shoulder w contrast 39591; To Be Done: 08 Sep 2018 Instructions Name Dates Details Instructions not documented Encounters Appointment; AMBER TA M.D. Encounter Diagnosis: Problem not documented On: 31-Mar-2018 10:30 Appointment; CRUMBIE, AMBER, M.D. Encounter Diagnosis: Problem not documented On: 16-Jun-2018 12:15 Appointment; AMBER TA M.D. Encounter Diagnosis: Problem not documented On: 08-Sep-2018 11:15
[2018-09-30 11:00] VITALS: BP 136/85
--- NOTE | 2018-09-30 11:38 | Operative Report ---
DATE OF PROCEDURE: September 30, 2018 REFERRING PHYSICIAN: Dr. Leann Aaron PROCEDURES PERFORMED 1. Esophagogastroduodenoscopy with esophageal dilatation and biopsies. 2. Colonoscopy with polypectomy. INDICATIONS FOR EGD: Upper abdominal pain, bloating, dysphagia. INDICATIONS FOR COLONOSCOPY: Surveillance colonoscopy, personal history of colon polyps. MEDICATION: Patient was done under MAC. Please see anesthesiologist's note. PROCEDURE: With the patient in the left lateral decubitus position, the flexible fiberoptic Olympus gastroscope was introduced into the esophagus under direct visualization without any difficulty. There was some patchy nodularity noted in the cervical esophagus, and that was biopsied. There was some patchy mild erythema noted in the distal esophagus. A mild stricture was noted at the GE junction, and that was dilated to size 50-[place]. The scope was then advanced with ease into the stomach. Mucosa overlying the antrum and the body revealed some diffuse erythema and low-grade to moderate edema, and biopsies were obtained and sent to stain for H. pylori. Pylorus appeared to be of normal contour and shape. It was intubated with ease, and the scope was advanced all the way to the 2nd portion of the duodenum. The scope was then withdrawn slowly. Mucosa overlying the proximal 2nd portion and the duodenal bulb appeared to be within normal limits. The scope was then withdrawn back into the stomach and retroflexed. An approximately 1-cm submucosal nodule was noted in the fundus, and that was biopsied. Some persistent bleeding was noted post biopsy, and the biopsy site was hemoclipped x2 with excellent hemostasis. The scope was then straightened out. It was subsequently withdrawn. Patient tolerated the procedure well. IMPRESSION 1. Patchy nodularity, cervical esophagus, biopsied. 2. Esophagus dilated to size 50-[place]. 3. Gastritis, biopsied. Biopsies sent to stain for H. pylori. 4. Approximately 1-cm submucosal nodule, fundus, biopsied. Biopsy site was hemoclipped x2 due to a persistent low ooze from the biopsy site. PLAN: Follow up histology. Initiate Protonix 40 mg 1 p.o. q.a.m. a.c. If biopsies of the submucosal nodule are negative, then patient might benefit from an EUS. The patient was then turned around. After adequate lubrication of the anal canal, a flexible fiberoptic Olympus colonoscope was inserted into the rectum with ease and advanced all the way to the cecum. Some moderate amount of stools were noted in the cecum and the ascending colon. The scope was then withdrawn slowly, and diverticular disease was noted to involve the ascending colon. One polyp was snared from the ascending colon. The transverse and descending appeared to be within normal limits. Two polyps were snared and 1 polyp was hot biopsied from the sigmoid colon. One polyp was snared from the rectum. The scope was then retroflexed into the distal rectum, and small internal hemorrhoids were noted, none of which was actively bleeding. The scope was then straightened out. It was subsequently withdrawn. Patient tolerated the procedure well. IMPRESSION 1. Diverticulosis, right colon. Prep was suboptimal in the right colon. 2. Ascending colon polyp, snared. 3. Sigmoid colon polyps x3, two snared and one hot biopsied. 4. Rectal polyp, snared. 5. Internal hemorrhoids, none actively bleeding. PLAN: Follow up histology. Initiate high-fiber, low-fat diet. Initiate high-fiber supplement. Patient might benefit from a followup colonoscopy in 3 years. Job#: [id number] cc:LEANN AARON MD
== END | disposition home or self-care (01) ==
LOC: OR 08:07
PROVIDERS: ATTEND Internal Medicine Gastroenterology
DX: D12.2 Benign neoplasm of ascending colon (principal); D12.7 Benign neoplasm of rectosigmoid junction; K29.70 Gastritis, unspecified, without bleeding; K22.2 Esophageal obstruction; K31.9 Disease of stomach and duodenum, unspecified; K57.30 Diverticulosis of large intestine without perforation or abscess without bleeding; R13.10 Dysphagia, unspecified; I10 Essential (primary) hypertension; F17.299 Nicotine dependence, other tobacco product, with unspecified nicotine-induced disorders; K64.8 Other hemorrhoids; E78.5 Hyperlipidemia, unspecified
CPT/HCPCS: 36415; 43239; 43450; 45385; 85025; 88305; 88312; 88313; 93005; J1980; J2250; J2704 ×2; 45378; 45384